=== PATIENT | male | born 1950 | race Caucasian/White ===

== ENCOUNTER → 2016-05-01 | Outpatient (CLI) | payer OTHER ==
[~2016-05-01] MED LIST: IOPAMIDOL (ISOVUE-300) 50 ML VIAL IV ONE
[2016-05-01 08:33] LABS: GLOMERULAR FILTRATION RATE > 60
--- NOTE | 2016-05-01 09:07 | CT ---
CT abdomen pelvis with IV contrast. Indication persistent upper abdominal pain. TECHNIQUE: Contiguous helical axial scanning through the abdomen after the uneventful administration of oral and IV contrast. Patient received 90 mL of Isovue-300. Routine reconstructions were obtained. Dose reduction technique was performed. FINDINGS: Lung bases are clear. The liver gallbladder spleen pancreas adrenals kidneys ureter and jeremiah dder are unremarkable. Small bowel and colon are unremarkable. Appendix is visualized and normal. Bones exhibit degenerative changes. No bony lytic or blastic lesions. IMPRESSION: Normal CT abdomen and pelvis. Specifically no evidence to explain the patient's upper abd ominal pain.
== END ==
LOC: FIMAGING 07:46
PROVIDERS: ATTEND Internal Medicine Rheumatology
DX: R10.10 Upper abdominal pain, unspecified (principal)
CPT/HCPCS: 74177; Q9967

== ENCOUNTER → 2017-02-20 | Outpatient (CLI) | payer OTHER | LOC: BMCIMAGING 13:43 | PROVIDERS: ATTEND Internal Medicine Endocrinology, Diabetes & Metabolism | DX: Z13.820 Encounter for screening for osteoporosis (principal); M85.851 Other specified disorders of bone density and structure, right thigh; Z79.52 Long term (current) use of systemic steroids ==

== ENCOUNTER → 2017-05-21 | Outpatient (CLI) | payer OTHER | LOC: BMCIMAGING 14:08 | PROVIDERS: ATTEND Internal Medicine Rheumatology | DX: M47.892 Other spondylosis, cervical region (principal); M25.78 Osteophyte, vertebrae ==

== ENCOUNTER → 2018-02-20 | Outpatient (CLI) | payer OTHER | LOC: BMCIMAGING 14:47 | PROVIDERS: ATTEND Internal Medicine Endocrinology, Diabetes & Metabolism | DX: Z51.81 Encounter for therapeutic drug level monitoring (principal); Z79.52 Long term (current) use of systemic steroids; E11.9 Type 2 diabetes mellitus without complications; E07.9 Disorder of thyroid, unspecified ==

== ENCOUNTER → 2018-04-02 | Outpatient (CLI) | payer OTHER | END | disposition home or self-care (01) | LOC: FIMAGING 13:34 | PROVIDERS: ATTEND Internal Medicine Endocrinology, Diabetes & Metabolism | DX: M48.54XD Collapsed vertebra, not elsewhere classified, thoracic region, subsequent encounter for fracture with routine healing (principal) ==